=== PATIENT | female | born 1960 | race Asian ===

== ENCOUNTER 2016-10-27 20:48 | Emergency (ER) | payer OTHER ==
[~2016-10-27] VITALS: Ht 152.4 cm; Wt 47.5 kg
[~2016-10-27 20:48] MED LIST: CALC600T5 PO
[2016-10-27 20:52] VITALS: Ht 152.4 cm; Wt 47.5 kg
[2016-10-27] MEDS ORDERED: CEPH-443 PO (21:22)
[2016-10-27] MEDS ORDERED: IBUP-1542 PO (21:22)
--- NOTE | 2016-10-27 21:25 | ERD ---
ER Documentation Chief Complaint Date/Time DATE: 10/27/16 TIME: 21:23 Chief Complaint abscess on right breast HPI 56-year-old female complaining of painful red lump on her chest 2 days. Denies fever or chills. Denies drainage. Denies trauma. ROS All systems reviewed and are negative except as per history of present illness. Medications Home Meds Active Scripts Cephalexin* (Keflex*) 500 Mg Capsule, 500 MG PO QID for 7 Days, CAP Prov:LINDA VILLANUEVA. DIE MECHANIC 10/27/16 Ibuprofen* (Motrin*) 600 Mg Tab, 600 MG PO Q6H Y for PAIN AND OR ELEVATED TEMP, #30 TAB Prov:LINDA VILLANUEVA. DIE MECHANIC 10/27/16 Reported Medications Calcium Carbonate (CALCIUM) 600 Mg Tablet, 600 MG PO DAILY 04/12/13 Allergies Allergies: Uncoded Allergies: UNKNOWN ANTIBIOTICS (Allergy, RASH, 04/12/13) PMhx/Soc History of Surgery: Yes (C SECTION, HYSTERECTOMY, APPENDECTOMY) Anesthesia Reaction: No Hx Neurological Disorder: No Hx Respiratory Disorders: No Hx Cardiac Disorders: No Hx Psychiatric Problems: No Hx Miscellaneous Medical Probl: No Hx Alcohol Use: No Hx Substance Use: No Hx Tobacco Use: No Smoking Status: Never smoker Physical Exam Vitals Vital Signs Date Time Temp Pulse Resp B/P Pulse Ox O2 Delivery O2 Flow Rate FiO2 10/27/16 20:52 98.4 83 20 106/83 98 Physical Exam General: Well-developed, well-nourished, conscious and coherent, in no distress Skin: Warm and dry, good texture and turgor. A 1 x 2 cm raised erythematous lesion noted on the chest right to the sternal border, with small pustules in the center. Head: Normocephalic without evidence of trauma Eyes: Sclera and conjunctivae normal; pupils equal, round, and reactive to light; extraocular movements are intact Chest: Normal AP diameter. Good expansion without retractions. Nontender. Lungs are clear to auscultate bilaterally with good tidal volume Heart: Regular rate and rhythm. No murmur, rub, or gallops heard Extremities: Full range of motion. Good strength bilaterally. No clubbing, cyanosis, or edema. Peripheral pulses are intact. Sensation intact Neuro: Alert and oriented 4, GCS 15. Cranial nerves grossly intact. Motor and sensory exams nonfocal. Moves all extremities. Speech clear. Gait normal Results 24 hrs Current Medications Medications (Trade) Dose Ordered Sig/Chon Route PRN Reason Start Time Stop Time Status Last Admin Dose Admin Lidocaine (Xylocaine 1% (Mdv) 20 ml) 20 ml ONCE ONCE SC 10/27/16 21:30 10/27/16 21:31 DC Procedures/MDM Procedure note: Incision and Drainage Verbal consent obtained for incision and drainage of patient's abscess. The area was prepped with Betadine. Lidocaine 1% was infiltrated for local anesthesia. After appropriate anesthesia, 2 small pustules were incised using # 11 blade. Minimal amount of purulent discharge was drained from the abscess. The abscess was probed for loculation. The wound was then cleaned and dressed. Patient tolerated procedure well. Patient appears well, stable for discharge and outpatient management. Medical decision making shared with patient and family. Education provided to patient and family. Patient and family expressed understanding of the plan. Medications on discharge: Ibuprofen, Keflex. Follow-up: Primary care provider in 2-3 days or return to ED if worse. Departure Diagnosis: Primary Impression: Abscess Condition: Good Patient Instructions: Abscess, Incision And Drainage Referrals: SHANNAN GARSIA Additional Instructions: Return to this facility in 2 DAYS for a follow-up exam.Return sooner if your condition worsens. LINDA VILLANUEVA NP October 27, 2016 21:25
[2016-10-27] MEDS ORDERED: LIDOCAINE 1% (MDV) 20 ML INJ SC ONE (21:30)
== END 2016-10-27 22:43 | disposition home or self-care (01) ==
LOC: FTE 20:48
DX: N61.1 Abscess of the breast and nipple (principal); R40.2412 Glasgow coma scale score 13-15, at arrival to emergency department
CPT/HCPCS: 10060; Z7502; Z7610

== ENCOUNTER 2016-10-30 20:02 | Emergency (ER) | payer OTHER ==
[~2016-10-30] VITALS: Ht 157.5 cm; Wt 45.0 kg
[~2016-10-30 20:02] MED LIST changes: +CEPH-443 PO; +IBUP-1542 PO
[2016-10-30 20:06] VITALS: Ht 157.5 cm; Wt 45.0 kg
--- NOTE | 2016-10-30 21:30 | ERD ---
ER Documentation Chief Complaint Date/Time DATE: 10/30/16 TIME: 21:28 Chief Complaint wound check right breast sp i and d HPI Patient is a 56-year-old female who presents to the ED with wound check on her chest. She states that 3 days ago she had a wound drain. She states that she is taking her antibiotics as prescribed and she states that her wound is getting better. She denies fever or chills. She has no other complaints today. ROS All systems reviewed and are negative except as per history of present illness. Medications Home Meds Active Scripts Cephalexin* (Keflex*) 500 Mg Capsule, 500 MG PO QID for 7 Days, CAP Prov:LINDA VILLANUEVA. ROLL SETTER 10/27/16 Ibuprofen* (Motrin*) 600 Mg Tab, 600 MG PO Q6H Y for PAIN AND OR ELEVATED TEMP, #30 TAB Prov:LINDA VILLANUEVA. ROLL SETTER 10/27/16 Reported Medications Calcium Carbonate (CALCIUM) 600 Mg Tablet, 600 MG PO DAILY 04/12/13 Allergies Allergies: Uncoded Allergies: UNKNOWN ANTIBIOTICS (Allergy, RASH, 04/12/13) PMhx/Soc History of Surgery: Yes (C SECTION X 3, HYSTERECTOMY, APPENDECTOMY) Anesthesia Reaction: No Hx Neurological Disorder: No Hx Respiratory Disorders: No Hx Cardiac Disorders: No Hx Psychiatric Problems: No Hx Miscellaneous Medical Probl: No Hx Alcohol Use: No Hx Substance Use: No Hx Tobacco Use: No Smoking Status: Never smoker FmHx Family History: No coronary disease, No diabetes, No other Physical Exam Vitals Vital Signs Date Time Temp Pulse Resp B/P Pulse Ox O2 Delivery O2 Flow Rate FiO2 10/30/16 20:06 97.8 87 20 121/73 98 Physical Exam GENERAL: Well-developed, well-nourished female. Appears in no acute distress. HEAD: Normocephalic, atraumatic. EYES: Pupils are equally reactive bilaterally. EOMs grossly intact. No conjunctival erythema. ENT: Moist mucous membranes. No uvula deviation. No kissing tonsils. No exudates. NECK: Supple. No lymphadenopathy or thyromegaly. No meningismus. negative kernig. negative brudinski. LUNG: Clear to auscultation bilaterally. No rhonchi, wheezing, rales or coarse breath sounds. HEART: Regular rate and rhythm. No murmurs, rubs or gallops. Extremities: Equal pulses bilaterally. No peripheral clubbing, cyanosis or edema. No unilateral leg swelling. NEUROLOGIC: Alert and oriented. Moving all four extremities. 5/5 strength in all extremities. Normal speech. Steady gait. SKIN: Normal color. Warm and dry. No rashes or lesions. Capillary refill < 2 seconds. Healing 2 cm abscess on the mid chest near sternum. No drainage. Mild surrounding erythema. Procedures/MDM ER COURSE: I kept the patient and/or family informed of laboratory and diagnostic imaging results throughout the emergency room course. MEDICAL DECISION MAKING: This is a 56-year-old female who presents with wound check. Vital signs were reviewed. Patient is afebrile. Patient is not hypoxic. Patient is not toxic or ill-appearing. Patient has a healing abscess. At this point I do not think any packing or incision and drainage is necessary. Wound dressing was changed. Extra dressing was given to patient. Low suspicion for necrotizing fasciitis , SJS, toxic epidermal necrolysis, Kawasaki, erythema multiforme, gangrene, scarlet fever, meningococcemia, sepsis, anaphylaxis, sepsis, deep space infection, or foreign body. DISCHARGE: At this time, patient is stable for discharge and outpatient management with no new complaints during the ER course. Patient was sent home with instructions to return in 2 days for any worsening symptoms. Continue checking the wound.. Patient will be discharged home with instructions to recheck for new or worsening symptoms such as fever, nausea, weakness, LOC and to follow up with primary care in the next 1-2 days. Patient was advised to return to the ER for any new or worsening symptoms. Plan was discussed and patient and/or family understands and agrees. Home instructions were given. Departure Diagnosis: Primary Impression: Encounter for wound re-check Condition: Stable Patient Instructions: Wound Check, Lac F/U (No Infection) Referrals: DARRYL SUAZO ([facility]) (PCP) Additional Instructions: Call your primary care doctor TOMORROW for an appointment during the next 1-2 days.See the doctor sooner or return here if your condition worsens before your appointment time. PILI NUNEZ PA-C October 30, 2016 21:30
== END 2016-10-30 21:44 | disposition home or self-care (01) ==
LOC: FTE 20:02
DX: Z48.01 Encounter for change or removal of surgical wound dressing (principal)
CPT/HCPCS: 99281